=== PATIENT | female | born 1980 | race Caucasian/White ===

== ENCOUNTER → 2024-02-15 15:44 | Outpatient (REF) | payer BC, SELFPAY | LOC: WDC 15:44 | PROVIDERS: ATTENDING PHYSICIAN Obstetrics & Gynecology; FAMILY PHYSICIAN Family Medicine | DX: Z12.31 Encounter for screening mammogram for malignant neoplasm of breast (principal) | CPT/HCPCS: 77063; 77067 ==

== ENCOUNTER → 2024-06-17 12:37 | Outpatient (REF) | payer BC, SELFPAY ==
[2024-06-17 14:47] LABS: D-Dimer 1.57 ug/mlFEU (0.00-0.50)
== END ==
LOC: REG 12:37
PROVIDERS: ATTENDING PHYSICIAN Nurse Practitioner Family; FAMILY PHYSICIAN Family Medicine
DX: Z86.718 Personal history of other venous thrombosis and embolism (principal)
CPT/HCPCS: 36415; 85379

== ENCOUNTER 2024-06-18 06:20 | Observation (INO) | payer BC, SELFPAY ==
[2024-06-18] VITALS (7 sets, daily range): BP systolic 98–105; BP diastolic 59–81; BMI 20.8
--- NOTE | 2024-06-18 01:33 | ED.GENMED ---
History of Present Illness
<Lauren Barone DO, Resident - Last Filed: 06/18/24 03:04>
General
Chief Complaint: Abdominal Pain
Source: patient
Exam Limitations: none
Time Seen by Provider: 06/18/24 01:31
Nursing documentation reviewed up to this point in time: agreed with
History of Present Illness
History of Present Illness:
Ms. Kala Duarte is a pleasant 44yo F pmh DVT presenting with chest pain, abdominal pain, and an elevated d-dimer today. Pt was sick with a cold/flu last and is still coughing and congested. The intermittent sharp neck, R back, and RUQ
pain began on Monday and lasted 2 hrs. Monday, the pain lasted 90 minutes and moved to include lower R rib pain. Monday she reported feeling feverish. Today, she had a 20 minutes episode of pain. Had outpatient bloodwork done and had an elevated
d-dimer. Her pcp's office was closed when this resulted - ordered her to get a cta chest, abdominal u/s for gallbladder, and leg u/s. She started experiencing another episode of pain that lasted 2.5 hours. She now reports hemoptysis, sore throat,
and feeling SOB. Denies leg swelling, pain.
Hx of needing anticoagulation for DVT (x2 in R leg), not currently on any medications.
Past History
<Lauren Barone DO, Resident - Last Filed: 06/18/24 03:04>
Past History
ED Past Medical History: Other (dvt)
Social History
Tobacco: Non-smoker
Alcohol: None
Drug: None
Personal:
Living: with family
Family History
Family History: Other (No significant)
Review of Systems
<Lauren Barone DO, Resident - Last Filed: 06/18/24 03:04>
Review of Systems
Allergies reviewed?: Yes
All Other Systems: ROS reviewed and negative except as documented in HPI and ROS
EENT: Reports sore throat
Respiratory: Reports cough, hemoptysis and trouble breathing
Cardiac: Reports chest pain; Denies palpitations
ABD/GI: Reports abdominal pain (RUQ); Denies nausea, vomiting or diarrhea
Neurological: Denies dizzy or headache
Phy Exam
<Lauren Barone DO, Resident - Last Filed: 06/18/24 03:04>
General Physical Exam
General Presentation: well appearing
General age: appears stated age
General Skin: warm and dry
General Habitus: normal
General Mental: alert
General Hydration: appears well hydrated
Cardiovascular Exam
Cardiovascular Exam: regular rate/rhythm, no edema, no gallop, no murmur and normal peripheral pulses
Pulmonary Exam
Pulmonary Exam: no respiratory distress, no rales, chest non tender, no crackles, no rhonchi, no wheezing, no cough and decreased breath sounds (R upper lung)
Oxygen Status: room air
Gastrointestinal Exam
Gastrointestinal Exam: normal bowel sounds, non tender, soft, no organomegaly, no pulsatile mass, non distended and other (negative Skinner sign)
Psychiatric Exam
Psychiatric Exam: normal mood/affect
Scores
<Lauren Barone DO, Resident - Last Filed: 06/18/24 03:04>
PE Wells Score
Symptoms of DVT: No
No alternative diagnosis better explains the illness: Yes
Tachycardia with pulse > 100: No
Immobilization (>=3 days) or surgery within previous 4 weeks: Yes
Prior history of DVT or pulmonary embolism: Yes
Presence of hemoptysis: Yes
Presence of malignancy: No
Pulmonary Embolism Risk Score: 10.0
Probability of PE: Pt is high risk
<Duane Hector DO - Last Filed: 06/18/24 04:49>
PE Wells Score
Pulmonary Embolism Risk Score: 10.0
Probability of PE: Pt is high risk
Course
<Lauren Barone DO, Resident - Last Filed: 06/18/24 03:04>
Orders/Labs/Results
Orders:
Orders
06/18/24 01:48
CT Chest Pe Study Urgent
Comment:
Reason For Exam: pain ddimer up
06/18/24 01:54
Test Result ONCE
06/18/24 02:58
Complete Blood Count/With Diff Urgent
Comprehensive Metabolic Panel Urgent
HCG, Serum Qualitative Screen Urgent
06/18/24 04:47
Electrocardiogram (*1) Urgent
Reason for Study: Chest Pain
EKG- Treatment ONCE
PTT Urgent
Comment: Obtain baseline before beginning heparin infusion if not already collected
Heparin 5,000 units IV NOW STA
Pharmacy Request to Place See Dose Instructions PO NOW STA
Discontinue all Active Warfarin orders?: Yes
Nursing to Place Non Medication Order As Directed
Physician Order: PTT 6 hours after initial start of Heparin infusion
06/18/24 05:00
Heparin INFUSION titrate rate - CONTINUOUS Heparin 97981 Units/250 ml 25,000 units in 250 ml IV PER PROTOCOL
Weight to be used for heparin protocol in kilograms (kg):: 62.1
Protocol:: DVT/PE
PTT Goal Range to be used:: PTT 73 to 111 seconds
Order type:: Initial
INITIAL Infusion Dose (UNITS/KG/hr) & then follow protocol:: 18 units/kg/hr
Infusion Dose in UNITS/hr & then follow protocol (UNITS/hr):: 1,100
INFUSION RATE in mL/hr & then follow protocol (mL/hr):: 11
For DVT/PE algorithm, re-bolus for low PTT?: Yes
PTT less than or equal to 64 seconds:: Re-bolus 80 units/kg (max 10,000units). Increase by 200 units/hr
(+ 2mL/hr)
PTT 64.1 to 72.9 seconds:: Re-bolus 40 units/kg (max 5,000 units). Increase by 100 units/hr
(+ 1mL/hr)
PTT 73 to 111 seconds:: Target Range. No change in rate.
PTT 111.1 to 130.9 seconds:: Decrease rate by 100 units/hr (- 1 mL/hr)
PTT 131 to 199.9 seconds:: HOLD for 1 hr. Then decrease by 200 units/hr (- 2mL/hr)
PTT greater than or equal to 200 seconds:: HOLD for 2 hrs & Notify Provider. Then decrease by 200 units/hr
(- 2mL/hr)
Lab follow-up:: Each change, PTT q6h until 2 consecutive are therapeutic. Then
PTT daily.
Pharmacy Request to Place See Dose Instructions IV DIRECTED
Abnormal Lab Results
06/18/24
02:58
RBC 3.76 L 10^6/uL
(4.20-5.40)
Hgb 11.7 L g/dL
(12.0-16.0)
Hct 33.9 L %
(37.0-47.0)
MCH 31.1 H pg
(27.0-31.0)
MPV 10.5 H fL
(7.4-10.4)
Absolute Lymphs (auto) 0.9 L 10^3/uL
(1.2-3.4)
Neutrophils % 77.2 H %
(42.2-75.2)
Lymphocytes % 12.4 L %
(20.5-51.1)
Chloride 108 H mmol/L
(98-107)
Carbon Dioxide 21 L mmol/L
(22-30)
Creatinine 0.5 L mg/dL
(0.6-1.0)
Glucose 100 H mg/dl
(70-99)
Total Protein 5.9 L g/dl
(6.3-8.2)
Albumin 3.3 L g/dl
(3.5-5.0)
06/18/24 02:58
06/18/24 02:58
Vital Signs
Initial and Last Documented VS:
Initial Vital Signs
Temp Pulse Resp BP Pulse Ox
98 F 96 22 100/68 100
06/18/24 00:07 06/18/24 00:07 06/18/24 00:07 06/18/24 00:07 06/18/24 00:07
Last Documented Vital Signs
Temp Pulse Resp BP Pulse Ox
98 F 74 20 105/65 97
06/18/24 00:07 06/18/24 03:30 06/18/24 03:30 06/18/24 03:09 06/18/24 03:30
<Duane Hector, DO - Last Filed: 06/18/24 04:49>
Orders/Labs/Results
Orders:
Orders
06/18/24 01:48
CT Chest Pe Study Urgent
Comment:
Reason For Exam: pain ddimer up
06/18/24 01:54
Test Result ONCE
06/18/24 02:58
Complete Blood Count/With Diff Urgent
Comprehensive Metabolic Panel Urgent
HCG, Serum Qualitative Screen Urgent
06/18/24 04:47
Electrocardiogram (*1) Urgent
Reason for Study: Chest Pain
EKG- Treatment ONCE
PTT Urgent
Comment: Obtain baseline before beginning heparin infusion if not already collected
Heparin 5,000 units IV NOW STA
Pharmacy Request to Place See Dose Instructions PO NOW STA
Discontinue all Active Warfarin orders?: Yes
Nursing to Place Non Medication Order As Directed
Physician Order: PTT 6 hours after initial start of Heparin infusion
06/18/24 05:00
Heparin INFUSION titrate rate - CONTINUOUS Heparin 05443 Units/250 ml 25,000 units in 250 ml IV PER PROTOCOL
Weight to be used for heparin protocol in kilograms (kg):: 62.1
Protocol:: DVT/PE
PTT Goal Range to be used:: PTT 73 to 111 seconds
Order type:: Initial
INITIAL Infusion Dose (UNITS/KG/hr) & then follow protocol:: 18 units/kg/hr
Infusion Dose in UNITS/hr & then follow protocol (UNITS/hr):: 1,100
INFUSION RATE in mL/hr & then follow protocol (mL/hr):: 11
For DVT/PE algorithm, re-bolus for low PTT?: Yes
PTT less than or equal to 64 seconds:: Re-bolus 80 units/kg (max 10,000units). Increase by 200 units/hr
(+ 2mL/hr)
PTT 64.1 to 72.9 seconds:: Re-bolus 40 units/kg (max 5,000 units). Increase by 100 units/hr
(+ 1mL/hr)
PTT 73 to 111 seconds:: Target Range. No change in rate.
PTT 111.1 to 130.9 seconds:: Decrease rate by 100 units/hr (- 1 mL/hr)
PTT 131 to 199.9 seconds:: HOLD for 1 hr. Then decrease by 200 units/hr (- 2mL/hr)
PTT greater than or equal to 200 seconds:: HOLD for 2 hrs & Notify Provider. Then decrease by 200 units/hr
(- 2mL/hr)
Lab follow-up:: Each change, PTT q6h until 2 consecutive are therapeutic. Then
PTT daily.
Pharmacy Request to Place See Dose Instructions IV DIRECTED
Abnormal Lab Results
06/18/24
02:58
RBC 3.76 L 10^6/uL
(4.20-5.40)
Hgb 11.7 L g/dL
(12.0-16.0)
Hct 33.9 L %
(37.0-47.0)
MCH 31.1 H pg
(27.0-31.0)
MPV 10.5 H fL
(7.4-10.4)
Absolute Lymphs (auto) 0.9 L 10^3/uL
(1.2-3.4)
Neutrophils % 77.2 H %
(42.2-75.2)
Lymphocytes % 12.4 L %
(20.5-51.1)
Chloride 108 H mmol/L
(98-107)
Carbon Dioxide 21 L mmol/L
(22-30)
Creatinine 0.5 L mg/dL
(0.6-1.0)
Glucose 100 H mg/dl
(70-99)
Total Protein 5.9 L g/dl
(6.3-8.2)
Albumin 3.3 L g/dl
(3.5-5.0)
06/18/24 02:58
06/18/24 02:58
Vital Signs
Initial and Last Documented VS:
Initial Vital Signs
Temp Pulse Resp BP Pulse Ox
98 F 96 22 100/68 100
06/18/24 00:07 06/18/24 00:07 06/18/24 00:07 06/18/24 00:07 06/18/24 00:07
Last Documented Vital Signs
Temp Pulse Resp BP Pulse Ox
98 F 74 20 105/65 97
06/18/24 00:07 06/18/24 03:30 06/18/24 03:30 06/18/24 03:09 06/18/24 03:30
<Lauren Barone DO, Resident - Last Filed: 06/18/24 03:04>
MDM/Problems Addressed
Differential Diagnosis Includes:
PE, cholelithiasis, choledocolithiasis
<Duane Hector DO - Last Filed: 06/18/24 04:49>
*Critical Care Note
Total Time (30-74mins, 75-104mins- exclusive of procedures): 30
<Duane Hector DO - Last Filed: 06/18/24 04:49>
Update Note
Update Note:
Update CT report noted right-sided PE with pulmonary infarct
ED Attending Note
<Lauren Barone DO, Resident - Last Filed: 06/18/24 03:04>
-
Portions of this chart may have been created with voice recognition software.� Occasional wrong word or��sound alike� substitutions may have occurred due to the inherent limitations of voice recognition software.
<Duane Hector DO - Last Filed: 06/18/24 04:49>
ED Attending Note
Patient seen and examined by attending physician: Yes
I performed a history and physical exam of patient and discussed management with resident, I reviewed resident's note and agree with documented findings and plan of care.: Yes
ED Attending Note:
Seen with resident examined independently 44-year-old female history of DVT right-sided chest pain intermittent palpitation blood work had elevated D-dimer referred here for evaluation
Will check CT scan labs, if no PE or other pulmonary pathology consideration for right upper quadrant ultrasound
Discharge Plan
Departure
Patient Disposition: Admit
Date of Disposition: 06/18/24
Time of Disposition: 04:48
Admit to: Med/Surg
Presentation/result/management discussed w/ accepting MD/: Hospitalist
Patient with high blood pressure during this ER visit?: No
Condition: Fair
Discharge Problem:
Pulmonary emboli
Referrals:
Walt Ronquillo DO [Family Provider] -
Interventions
Interventions:
*Risk Screen - Suicide Last Done: 06/18/24 00:07
*General Assessment Last Done: 06/18/24 02:46
*Neglect/Abuse Screening Last Done: 06/18/24 00:07
*ED COVID-19 Vaccine History Last Done: 06/18/24 02:46
EM-Zmbggo-Nerdzdgens Assessment Last Done: 06/18/24 02:46
ED-Musculoskeletal Assessment Last Done: 06/18/24 02:46
Discharge Date and Time
Print Language: PERUVIAN
[2024-06-18 03:07] LABS: % Basophils 0.5 % (0-2); % Eosinophils 3.5 % (0-6); % Immature Granulocytes 0.3 % (0-0.5); % Lymphocytes 12.4 % (20.5-51.1); % Monocytes 6.1 % (1.7-9.3); % Neutrophils 77.2 % (42.2-75.2); Absolute Eosinophils 0.3 10^3/uL (0-0.7); Absolute Lymphocytes 0.9 10^3/uL (1.2-3.4); Absolute Monocytes 0.5 10^3/uL (0.1-0.6); Absolute Neutrophils 5.7 10^3/uL (1.4-6.5); Hematocrit 33.9 % (37.0-47.0); Hemoglobin 11.7 g/dL (12.0-16.0); Mean Corp Hgb Conc. 34.5 g/dL (33.0-37.0); Mean Corpuscular Hgb 31.1 pg (27.0-31.0); Mean Corpuscular Volume 90.2 fL (81.0-99.0); Mean Platelet Volume 10.5 fL (7.4-10.4); Nucleated Red Blood Cells % 0 %; Platelet Count 182 10^3/uL (130-400); Red Blood Cell Count 3.76 10^6/uL (4.20-5.40); White Blood Cell Count 7.4 10^3/uL (4.8-10.8)
[2024-06-18 03:18] LABS: HCG, Serum Qualitative Screen Negative
[2024-06-18 03:23] LABS: ALT (SGPT) 13 U/L (0-35); AST (SGOT) 19 U/L (14-36); Albumin 3.3 g/dl (3.5-5.0); Alkaline Phosphatase 50 U/L (38-126); Blood Urea Nitrogen 12 mg/dl (7-17); Calcium 8.5 mg/dl (8.4-10.2); Carbon Dioxide 21 mmol/L (22-30); Chloride 108 mmol/L (98-107); Glucose 100 mg/dl (70-99); Potassium 4.2 mmol/L (3.5-5.1); Sodium 141 mmol/L (135-145); Total Bilirubin 0.6 mg/dl (0.2-1.3); Total Protein 5.9 g/dl (6.3-8.2); eGFR > 60.00
[2024-06-18 05:23] LABS: APTT 27.4 Sec (23.4-35.0)
[2024-06-18] MEDS: HEPARIN 5000 UNITS IV (05:28)
--- NOTE | 2024-06-18 05:37 | HPS.HSE ---
Family Physician
-
Family Physician: Walt Ronquillo
Chief Complaint
-
Abdominal pain
History of Present Illness
This is a 44-year-old female with a past medical history of a prior DVT in 2009 who presents to the emergency department with elevated D-dimer outpatient workup and concern for venous thromboembolism in the setting of 3 days of worsening chest and
abdominal pain.
Patient reports several days of cough cold and flulike symptoms 1 week ago. By the weekend she had improvement in the cough symptoms. There was occasional specks of blood and a cough but she was otherwise feeling well. She denied having fevers or
chills. However on Monday she started having pain that was sharp and started in the neck also called in the right upper quadrant as well as back. Is associated with some spasms. She did not associated with deep inspiration. This lasted about 2
hours before resolving. The following day she had another episode where the pain appears to have moved to the lower right rib. This lasted 90 minutes and then resolved. On Monday she reported feeling slightly feverish and had another episode of
the chest pain that lasted for about 20 minutes. She recalls that the pain was very severe. She then had outpatient blood work to evaluate for abdominal and chest pathology. One of the blood test was a D-dimer which was elevated. She was
initially ordered to get a CT of the chest abdomen ultrasound and a leg ultrasound however with the positive D-dimer and another episode of pain that lasted 20 hours she came to the emergency department. She was negative for COVID-19 during initial
flulike stage.
Of note patient has a prior DVT in 2009 for unclear reasons. 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 She was also on control pills. She was treated with approximately 8 months of anticoagulation. Thereafter she had prophylactic
anticoagulation during . She had a workup for hypercoagulable state reports that it was negative at that time. She has no family history of clotting or bleeding disorders.
Denies any recent lower extremity swelling or pain.
In the emergency department she was normotensive and afebrile. Blood pressure was 1 5/65 oxygen saturation was 97 to 99% on room air. ECG showed normal sinus rhythm with a rate of [address] or T wave changes. Chemistries and CBC were
within normal limits. LFTs within normal limits. She had a CT angio of the chest which shows a acute PE in the right lower lobe segmental and subsegmental regions with a right lower lobar infarct. There was no evidence of RV strain.
Medical History
Past Medical History
Past Medical History: Reports Other (DVT)
Past Surgical History: Reports None
Social History
Tobacco: Non-smoker
Alcohol: None
Drug: None
Personal:
Living: With Family
Employment: Employed
Family History
Family History: Not pertinent
Allergies / Home Medications
Allergies reflects when Allergies were last updated in [employer].
Home Medications with original date entered in [employer]
Allergy/Medication List:
Allergies
Allergy/AdvReac Type Severity Reaction Status Date / Time
Penicillins Allergy Unknown Unknown Verified 06/18/24 05:12
CILLINS Allergy Unknown Unknown Uncoded 06/18/24 05:12
Home Medications
No Meds [No Current Medications] 06/18/24
Review of Systems
-
History Source: Patient
Constitutional: Reports No Symptoms
EENT: Reports No Symptoms
Respiratory: Reports Cough, Hemoptysis and Other (Chest pain)
Cardiac: Reports Chest Pain
Abdomen/GI: Reports Abdominal Pain
: Reports No Symptoms
Musculoskeletal: Reports No Symptoms
Skin: Reports No Symptoms
Neurological: Reports No Symptoms
Endocrine: Reports No Symptoms
Hematologic/Lymphatic: Reports No Symptoms
Psych: Reports No Symptoms
Physical Exam
Vital Signs
Vital Signs
Temp Pulse Resp BP Pulse Ox
98 F 74 20 105/65 97
06/18/24 00:07 06/18/24 03:30 06/18/24 03:30 06/18/24 03:09 06/18/24 03:30
Physical Exam
General: Well Developed, Well Nourished, No Apparent Distress and Comfortable
HEENT: NormoCephalic, Anicteric, Moist mucous membranes and Atraumatic
Respiratory: Clear
Cardiac: S1/S2 and Regular Rhythm
GI: Soft, Non Tender, Non Distended and Normal Bowel Sounds
Rectal: Deferred by Provider
Genito-urinary: Deferred by me
Musculoskeletal: No Clubbing, No Cyanosis and No Edema
Skin: Warm
Neuro: AO x 3
Hematologic/Lymphatic: No Lymphadenopathy
Psych: Calm
Laboratory Results
-
06/18/24 02:58
06/18/24 02:58
Laboratory Results
APTT 27.4 Sec (23.4-35.0) 06/18/24 05:01
Total Bilirubin 0.6 mg/dl (0.2-1.3) 06/18/24 02:58
AST 19 U/L (14-36) 06/18/24 02:58
ALT 13 U/L (0-35) 06/18/24 02:58
Alkaline Phosphatase 50 U/L (38-126) 06/18/24 02:58
Data Reviewed
-
CT Scan: Report Reviewed by me
Medical Tests (Nuc Med, Echo, EKG etc): Image Personally Visualized and interpreted
Lab Data: Labs Reviewed by me
Old Records: Reviewed
Impression/Plan
-
IMPRESSION:
PLAN:
1. PE -patient with recurrent venous thromboembolism. Prior DVT in 2009 s/p 8 months AC. Comes in with atypical chest pain and elevated D-dimer and found to have a right lower lobe PE complicated by a right lower lobe infarct. She has no RV
strain. ECG is nonischemic. She is hemodynamically stable. No evidence of submassive or massive PE. No oxygen requirement. She had cough and flulike symptoms last week but was not tested for COVID. No other predisposing or risk factors for PE.
At any rate with a second venous thromboembolism she is a candidate for indefinite anticoagulation. sPESI = low risk. However given infarct and some hemoptysis ok to observe on anticoagulation before sending home.
- admit to med/surg
- due to infarct, and some hemoptysis, ok to start with heparin gtt and monitor.
- transition to oral ac when symptoms improved and patient safely anticoagulated
- no indication for hematology w/u for hypercoagulable state
- she should get outpatient routine screening for breast ca, and possibly colon ca if at risk
Code Status - Full code
[2024-06-18] MEDS: HEPARIN 25000 UNITS/250 ML IV (05:58)
--- NOTE | 2024-06-18 08:13 | W.PN.HOSP.TC ---
Today's Communication/Plan
-
Discharge
Assessment / Plan
Assessment / Plan
Gen-AAOx3, NAD
HEENT-NC, AT, anicteric, clear oral mm
Neck-supple
CV-reg, no M, +S1/S2
Lungs-clear B/L
Abd-soft, NT, ND
Ext-no edema
Musculoskeletal-no cyanosis, clubbing
Skin-warm and dry
Neuro-grossly non-focal
Psych-calm, cooperative
Acute pulmonary embolism -right lower lobe pulmonary artery subsegmental embolism noted on CT. No right heart strain. Right lower lobe pulmonary infarct suspected based on symptoms and CT findings. Doubt pneumonia, afebrile, WBC count normal.
Component of atelectasis possible. Small reactive right pleural effusion.
Transition to Eliquis today and recommend long-term anticoagulation. Discussed with patient. Recommend outpatient hematology follow-up.
Recent acute bronchitis -not COVID tested at the time of her illness. Took an COVID test prior to admission that was negative. Minimal hemoptysis within sputum, monitor for now.
History of DVT -in 2009. Was on oral contraceptives at that time. Possibly also linked to long distance air travel. Treated with warfarin. Reportedly had a hypercoagulable workup at that time that was negative.
Full code
Dispo -anticipate discharge home today on anticoagulation. Case management to look into cost. Outpatient follow-up.
34 minutes spent in discharge process.
Anticipated Discharge: Today
Subjective/Interval History
-
Date of Service: June 18, 2024
Patient seen and examined. Denies any shortness of breath. Mild pleuritic right-sided chest pain.
Objective Data
-
Labs:
Laboratory Results
06/18/24 06/18/24 06/18/24
02:58 05:01 12:00
WBC 7.4
Hgb 11.7 L
Hct 33.9 L
Plt Count 182
PT Pending
INR Pending
APTT 27.4 Pending
Sodium 141
Potassium 4.2
Chloride 108 H
Carbon Dioxide 21 L
BUN 12
Creatinine 0.5 L
Glucose 100 H
Calcium 8.5
Total Bilirubin 0.6
AST 19
ALT 13
Alkaline Phosphatase 50
Vital Signs:
Vital Signs
Temp Pulse Resp BP Pulse Ox
98 F 80 24 101/62 98
06/18/24 00:07 06/18/24 06:03 06/18/24 05:30 06/18/24 06:03 06/18/24 05:30
Review of Systems
-
History Source: Patient
All other systems: Reviewed and negative
--- NOTE | 2024-06-18 08:26 | W.DS.TRANS ---
DC Summary - Car Wrecker
-
Discharge Instructions:
Discharge Diagnosis/Procedures Pulmonary embolism, pulmonary infarction
Diet Regular
Activity As tolerated
Driving Restrictions As prior to admission
Bathing Restrictions None
Instructions:
Stand-Alone Forms:
Changes to Home Medications: No
Discharge Medications:
DC Medications w/original date entered in [facility]
apixaban 5 mg (74 tabs) tablets in a dose pack (Eliqu[employer] Vision DVT-PE Treat 30D Start) See Rx Instructions PO .COMPLEX #74 ea 06/18/24
ibuprofen 800 mg tablet 800 mg PO Q6HPRN PRN chest pain #20 tabs 06/18/24
Home Medication Changes
Pending Results: No
[2024-06-18] MEDS: MOTRIN 800 MG PO (09:21)
--- NOTE | 2024-06-18 09:21 | CM ---
CM confirmed that patient has a high deductible plan for her medications. Eliquis started pack at $707. Patient given [employer] coupon and patient assistance information from [employer]. Patient is agreeable to medication plan.
CM updated hospitalist and bedside RN.
Patient is otherwise independent and plan for discharge to home with no needs.
[2024-06-18] MEDS: ELIQUIS 10 MG PO (09:23)
== END 2024-06-18 10:15 | disposition home or self-care (01) ==
LOC: ED 06:20
PROVIDERS: ADMITTING PHYSICIAN Internal Medicine; ATTENDING PHYSICIAN Hospitalist; EMERGENCY PHYSICIAN Emergency Medicine; FAMILY PHYSICIAN Family Medicine
DX: I26.93 Single subsegmental thrombotic pulmonary embolism without acute cor pulmonale (principal); R10.9 Unspecified abdominal pain; R10.11 Right upper quadrant pain; R07.81 Pleurodynia; R79.89 Other specified abnormal findings of blood chemistry; R07.89 Other chest pain; R05.9 Cough, unspecified; R04.2 Hemoptysis; J02.9 Acute pharyngitis, unspecified; R50.9 Fever, unspecified; M54.2 Cervicalgia; M54.9 Dorsalgia, unspecified; J90 Pleural effusion, not elsewhere classified; Z86.718 Personal history of other venous thrombosis and embolism; Z88.0 Allergy status to penicillin
CPT/HCPCS: 71275; 80053; 84703; 85025; 85730; 93005; G0378; Q9967

== ENCOUNTER → 2024-06-19 14:23 | Outpatient (REF) | payer BC, SELFPAY | LOC: RAD 14:23 | PROVIDERS: ATTENDING PHYSICIAN Nurse Practitioner Family; FAMILY PHYSICIAN Family Medicine | DX: R79.89 Other specified abnormal findings of blood chemistry (principal) | CPT/HCPCS: 93970; 93971 ==

== ENCOUNTER → 2024-07-04 15:12 | Outpatient (REF) | payer BC, SELFPAY | LOC: RAD 15:12 | PROVIDERS: ATTENDING PHYSICIAN Family Medicine; FAMILY PHYSICIAN Family Medicine | DX: S09.90XA Unspecified injury of head, initial encounter (principal); Z79.01 Long term (current) use of anticoagulants | CPT/HCPCS: 70450 ==

== ENCOUNTER → 2025-02-17 15:50 | Outpatient (REF) | payer BC, SELFPAY | LOC: WDC 15:50 | PROVIDERS: ATTENDING PHYSICIAN Obstetrics & Gynecology; FAMILY PHYSICIAN Family Medicine | DX: Z12.31 Encounter for screening mammogram for malignant neoplasm of breast (principal) | CPT/HCPCS: 77063; 77067 ==

== ENCOUNTER 2025-06-11 18:35 | Emergency (ER) | payer BC, SELFPAY ==
[2025-06-11 18:36] VITALS: BP 114/70
--- NOTE | 2025-06-11 19:27 | ED.GENMED ---
History of Present Illness
General
Chief Complaint: Head Injury
Source: patient
Exam Limitations: none
Time Seen by Provider: 06/11/25 19:22
History of Present Illness
History of Present Illness:
See MDM
Past History
Past History
ED Past Medical History: Other (dvt)
ED Past Surgical History: None
Social History
Tobacco: Non-smoker
Alcohol: None
Drug: None
Personal:
Living: with family
Family History
Family History: Other (No significant)
Phy Exam
Physical Exam
Physical Exam:
See MDM
Course
Orders/Labs/Results
Orders:
Orders
06/11/25 18:40
CT Head W/o Iv Contrast Urgent
Comment:
Reason For Exam: Head injury on eliquis
Vital Signs
Initial and Last Documented VS:
Initial Vital Signs
Temp Pulse Resp BP Pulse Ox
98.3 F 72 16 114/70 98
06/11/25 18:36 06/11/25 18:36 06/11/25 18:36 06/11/25 18:36 06/11/25 18:36
Last Documented Vital Signs
Temp Pulse Resp BP Pulse Ox
98.3 F 72 16 114/70 98
06/11/25 18:36 06/11/25 18:36 06/11/25 18:36 06/11/25 18:36 06/11/25 19:30
MDM/Problems Addressed
Differential Diagnosis Includes:
Note:
CHIEF COMPLAINT(S)
The patient reports a head injury after falling.
HISTORY OF PRESENT ILLNESS
The patient is a 45-year-old female who presented after sustaining a fall during a physical education class. A child was running towards her, and she fell backward over a crate, initially landing on her backside and subsequently striking the back of
her head on the ground. She reports not experiencing an immediate headache, nor did she consider the incident a major issue initially. However, she expressed concern about the potential implications of the head injury, particularly because she is on
Eliquis. She currently experiences a mild headache but does not describe it as severe. The patient does not report nausea, vomiting, or visual disturbances, and there is no pain upon palpation of the injury site. There is no neck pain reported.
PHYSICAL EXAM
General: Alert, no acute distress.
Skin: Warm, dry.
Head: Normocephalic, atraumatic
Neck: Appears supple, trachea midline.
Eyes, Ears, Nose, Mouth, and Throat: Oral mucosa moist. Pupils equal reactive. EOMI
Cardiovascular: No signs of cyanosis
Respiratory: Respirations are non-labored.
Abdomen: Non-distended
Musculoskeletal: No deformities
Neurological: No focal neurological deficit observed.
Psychiatric: Cooperative, appropriate mood and affect.
PROBLEM LIST
- Acute head trauma with mild headache.
PLAN
Await the radiologists interpretation of the CT scan to rule out any intracranial injury. If the CT scan is normal, the patient will be discharged with advice on monitoring for any worsening symptoms and safe return to normal activities.
DIFFERENTIAL DIAGNOSIS
The Differential Diagnosis includes, in no particular order and is not limited to:
- Concussion
- Contusion
- Subdural hematoma
- Epidural hematoma
- Intracranial hemorrhage
- Skull fracture
- Cervical spine injury
- Tension headache
- Migraine
- Post-traumatic headache
SUMMARY OF ENCOUNTER
The patient, a 45-year-old female, presented to the emergency department after sustaining a fall during a physical education class. She was evaluated due to concerns over a head injury, especially considering her use of anticoagulant medication
(Eliquis). A CT scan of the head was performed to rule out any intracranial injury, which returned negative, showing no acute findings.
DISPOSITION
Discharge.
ASSESSMENT
Acute head trauma with mild headache, possible minor concussion.
PLAN
Await the radiologists interpretation of the CT scan to rule out any intracranial injury. If the CT scan is normal, the patient will be discharged with advice on monitoring for any worsening symptoms and safe return to normal activities.
PATIENT EDUCATION AND COUNSELING
Discussed the importance of adherence to anticoagulation medication and provided education on return precautions for any new or worsening symptoms such as severe headache, nausea, or visual disturbances.
FOLLOW-UP INSTRUCTIONS
Advised to follow up with primary care for further evaluation and management as needed.
MEDICATION RECONCILIATION
Current anticoagulant medication is Eliquis (apixaban). No changes were made to her Eliquis dosing despite missing a dose this morning.
MEDICAL DECISION MAKING
- Complexity of Data Reviewed: Differential diagnoses considered include concussion, contusion, subdural hematoma, epidural hematoma, intracranial hemorrhage, skull fracture, cervical spine injury, tension headache, migraine, and post-traumatic
headache.
- Data:
Category 1: My independent interpretation of the CT scan of the head shows no acute intracranial trauma.
Category 3: Discussion of management with a radiologist regarding CT findings; no abnormalities found leading to discharge decision.
-Risk: Consideration of Admission/Observation: Escalation of care including admission/observation was considered given the complexity and risk of the patients presenting complaint, exam findings, and her medication (anticoagulant use). However,
ultimately I feel the patient is safe for outpatient management with close follow-up. Reasoning: Work-up reassuring, does not reveal any acute life/organ-threatening processes, patients symptoms well controlled upon reevaluation, reexamination is
reassuring, vitals are stable, patient agreeable with discharge, reliable for follow-up.
DIAGNOSIS
- Acute head trauma, mild concussion suspected (S06.0X0A).
- Risk for intracranial injury on anticoagulation (Z79.82).
*Pulse Oximetry
SaO2: 98
Oxygen Mode of Delivery: Room air
Patient hypoxic: no
*Critical Care Note
Total Time (30-74mins, 75-104mins- exclusive of procedures): Not Applicable
ED Attending Note
-
Portions of this chart may have been created with voice recognition software.� Occasional wrong word or��sound alike� substitutions may have occurred due to the inherent limitations of voice recognition software.
Discharge Plan
Departure
Patient Disposition: Home (Routine Discharge)
Date of Disposition: 06/11/25
Time of Disposition: 19:44
Patient with high blood pressure during this ER visit?: No
Discharge Problem:
Head injury
Instructions: Head Injury in Adults (DC)
Prescriptions:
No Action
ibuprofen 800 mg Tablet
800 mg PO Q6HPRN PRN (Reason: chest pain) Qty: 20 0RF
Eliquis DVT-PE Treat 30D Start 5 mg (74 tabs) tablets,dose pack
See Rx Instructions .ROUTE .COMPLEX Qty: 74 0RF
Rx Instructions:
orally per package directions
Activity Restrictions/Additional Instructions:
Please return for any worsening symptoms.
You may return at any time if you have further concerns.
Please follow up with your doctor at the first available appointment, preferably this week.
Thank you for choosing [facility].
Discharge Date and Time
Print Language: WOLOF
== END 2025-06-11 19:55 | disposition home or self-care (01) ==
LOC: EMR 18:35
PROVIDERS: EMERGENCY PHYSICIAN Student in an Organized Health Care Education/Training Program; FAMILY PHYSICIAN Family Medicine
DX: S09.90XA Unspecified injury of head, initial encounter (principal); W03.XXXA Other fall on same level due to collision with another person, initial encounter; Y92.219 Unspecified school as the place of occurrence of the external cause; Z79.01 Long term (current) use of anticoagulants; Z86.718 Personal history of other venous thrombosis and embolism
CPT/HCPCS: 99284; 70450